=== PATIENT | female | born 1965 | race Two or more races ===

== ENCOUNTER 2024-07-18 11:40 | Day surgery (SDC) | payer MEDICAID, SELFPAY ==
[2024-07-17 13:51] VITALS: BMI 26.7
[2024-07-18] VITALS (18 sets, daily range): BP systolic 113–186; BP diastolic 56–93; PULSE 53–95; RESP 12–19; TEMP 36.1–36.2; O2SAT 97–100; BMI 27.4
[2024-07-18] MEDS: SODIUM CHLORIDE 0.9% 500 ML 1,000 ML 60 ML IV (14:57)
--- NOTE | 2024-07-18 16:05 | SUR.PHASEII ---
8681 Patient arrived to recovery resting comfortably in [facility], [place], drowsy and able to arouse with verbal prompting, breathing unlabored, vital signs stable, denies pain and nausea, report received from Armida CAMARA
--- NOTE | 2024-07-18 16:38 | SUR.PHASEII ---
1638 Report given to Traci CAMARA, patient awake and alert, sitting up in bed, drinking water, breathing unlabored, vital signs stable, denies pain and nausea, Traci RN to assume care over patient
--- NOTE | 2024-07-18 16:38 | SUR.PHASEII ---
1638: Pt. AAOX4, vitals stable, breathing unlabored, no complaint of pain or nausea, pt. drank water, pt. meets discharge criteria, report received from Eva Soe RN to resume care of pt.
--- NOTE | 2024-07-18 16:45 | SUR.PHASEII ---
1645: Pt. AAOx4, vitals stable, breathing unlabored, no complaint of pain or nausea, no dressing in place, no active bleed noted, pt. tolerated sips of water well, pt. ambulated to wheelchair with steady gait and no assist, no complications. Gave discharge instructions to the pt. and her ride, both verbalized understanding and had no further questions. Pt. left with all personal belongings.
== END 2024-07-18 16:45 | disposition home or self-care (01) ==
PROVIDERS: Referring Provider Specialist; Visit Provider Specialist
PROC: 0DJD8ZZ Inspection of Lower Intestinal Tract, Via Natural or Artificial Opening Endoscopic (ICD-10-PCS; CPT 45378; principal; 2024-07-18 13:30)
PROC: (CPT 43239; 2024-07-18 13:30)
DX: E16.4 Increased secretion of gastrin (principal); K31.7 Polyp of stomach and duodenum; K21.01 Gastro-esophageal reflux disease with esophagitis, with bleeding; K25.4 Chronic or unspecified gastric ulcer with hemorrhage; K44.9 Diaphragmatic hernia without obstruction or gangrene; K31.89 Other diseases of stomach and duodenum; D64.9 Anemia, unspecified; K64.2 Third degree hemorrhoids
CPT/HCPCS: 43239; 45378; J1200; J2250; J3010; J7040; A9270

== ENCOUNTER → 2024-09-07 | Outpatient (CLI) | payer MEDICAID, SELFPAY ==
--- NOTE | 2024-09-07 11:00 | XR_ITS ---
Examination: CT abdomen with intravenous contrast. Coronal 2-D reconstructions. Sagittal 2-D reconstructions. 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 One or more of the following dose reduction techniques were used; automated exposure control, adjustment of the mA and/or KV according to patient size, use of iterative reconstruction technique. Findings: 30 mm posterior right lobe liver lesion Anterior left lobe 37 mm liver lesion Absent gallbladder Small retrocardiac gastric hernia Common bile duct 6 mm, no stones Mucosal edema in the gastric antrum and duodenum, axial image 65 No abdominal lymphadenopathy No renal or ureteral calculi, no hydronephrosis No bowel obstruction Moderate disc narrowing L5-S1 IMPRESSION: Liver lesions as above which may represent hemangiomas, recommend hepatic sonography for confirmation of benign liver hemangiomas Mucosal edema in the gastric antrum and duodenum
== END | disposition home or self-care (01) ==
PROVIDERS: PCP Physician Assistant; Referring Provider Specialist; Visit Provider Specialist
DX: K76.9 Liver disease, unspecified (principal); K31.89 Other diseases of stomach and duodenum
CPT/HCPCS: 74160; A4649; Q9967

== ENCOUNTER 2024-10-30 12:23 | Inpatient (IN) | payer MEDICAID, SELFPAY ==
--- NOTE | 2024-10-26 06:06 | EKG_ITS ---
[facility] Test Date: 2024-10-26 Pat Name: PILO BORREGO Department: Room: - Gender: Female Sock Lining Examiner: SHAKILA : 1965 Requested By: Jaime Gleason Order Number: [id number] Reading MD: Jaime Gleason Measurements Intervals Hawkins Rate: 52 P: 34 MA: 145 QRS: 25 QRSD: 79 T: 26 QT: 438 QTc: 411 Interpretive Statements SINUS BRADYCARDIA No previous ECG available for comparison /store/S0/[id number]/ecg/[id number]
[2024-10-26 09:02] VITALS: BMI 28.8
[2024-10-26 09:28] LABS: Collection Type, Urine Clean Catch
[2024-10-26 10:43] LABS: Basophils # (Auto) 0.1 Thou/mm3 (0.0-0.2); Basophils % (Auto) 1 % (0-2.5); Eosinophils # (Auto) 0.1 Thou/mm3 (0.0-0.5); Eosinophils % (Auto) 2 % (0-10); Hematocrit 38.4 % (36.0-46.0); Hemoglobin 12.4 g/dL (12.0-16.0); Immature Granulocytes Auto 0.02 Thou/mm3 (0.00-0.00); Lymphocytes # (Auto) 2.2 Thou/mm3 (1.0-4.8); Lymphocytes % (Auto) 36 % (10-50); Mean Corpuscular HGB Conc 32.3 g/dl (31.0-37.0); Mean Corpuscular Hemoglobin 26.5 pg (25.0-35.0); Mean Corpuscular Volume 82 fL (80-100); Monocytes # (Auto) 0.5 Thou/mm3 (0.0-0.8); Monocytes % (Auto) 8 % (0-12); Neutrophils # (Auto) 3.2 Thou/mm3 (1.8-7.7); Neutrophils % (Auto) 53 % (37-80); Nucleated Red Blood Cell # 0.00 Thou/mm3 (0.00-0.00); Nucleated Red Blood Cell % 0 /100 WBC (0); Platelet Count 234 Thou/mm3 (140-440); RDW Standard Deviation 41.1 fL (36.4-46.3); Red Blood Count 4.68 Miln/mm3 (4.00-5.20); White Blood Count 6.1 Thou/mm3 (3.6-11.0)
[2024-10-26 10:49] LABS: Alanine Aminotransferase 16 U/L (10-49); Albumin, Serum 4.5 gm/dL (3.4-4.8); Albumin/Globulin Ratio 1.6 (1.2-2.2); Alkaline Phosphatase 63 U/L (46-116); Anion Gap 9 (7-16); Aspartate Amino Transferase 21 U/L (0-34); BUN/Creatinine Ratio 21 Ratio (12-20); Bilirubin,Total 0.9 mg/dL (0.3-1.2); Blood Urea Nitrogen 17 mg/dL (9-23); Calcium 9.9 mg/dL (8.3-10.6); Calcium (Corrected) 9.9 mg/dL (8.5-10.1); Carbon Dioxide 26.6 mMol/L (20.0-31.0); Chloride 107 mMol/L (98-107); Creatinine (Component) 0.8 mg/dL (0.6-1.3); Estimated Creatinine Clearance 66.5 mL/min (>60); Globulin 2.8 gm/dL (2.3-3.5); Glucose 86 mg/dL (74-106); Osmolality,Calculated 285 (275-295); Potassium 3.8 mMol/L (3.4-5.1); Sodium 143 mMol/L (136-145); Total Protein 7.3 gm/dL (5.7-8.2); eGFR > 60 See Note
[2024-10-26 10:51] LABS: Partial Thromboplastin Time 25.6 Seconds (22.0-36.0)
[2024-10-26 10:53] LABS: Bilirubin,Urine Negative (Negative); Blood,Urine Negative (Negative); Clarity,Urine Clear (Clear/Hazy); Color,Urine Yellow (Lt Yel-Yel); Glucose, Urine Negative (Negative); Ketones,Urine Negative (Negative); Leukocyte Esterase,Urine Positive (Negative); Nitrite,Urine Negative (Negative); PH,Urine 6.0 (5.0-7.0); Protein,Urine Negative (Neg - Trace); RBC,Urine 4 /hpf (0-3); Specific Gravity,Urine 1.028 (1.001-1.035); Squamous Epithelial Cell,Urine 6 /hpf (0-5); Urobilinogen,Urine Negative mg/dL (0.0-1.0); WBC,Urine 1 /hpf (0-5)
[2024-10-26 10:57] LABS: Sperm,Urine Present
[2024-10-30] VITALS (17 sets, daily range): BP systolic 101–141; BP diastolic 60–88; PULSE 56–66; RESP 12–19; TEMP 36.1–36.6; O2SAT 95–100; BMI 28.5
[2024-10-30] MEDS: RINGERS LACTATED 1000 ML 1,000 ML 60 ML IV ×2 (06:57→13:09)
--- NOTE | 2024-10-30 07:39 | SUR.PREOP ---
Patient expressed gratitude for prayer before their procedure.
--- NOTE | 2024-10-30 11:16 | SUR.OPER ---
Son (Sukumar) updated on case status/progress via phone by Tr CAMARA at approx. 1102.
--- NOTE | 2024-10-30 11:45 | PD.SUROPNT ---
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 There is a liver hemangioma on the left lobe of the liver to tumor with multiple blood vessels consistent with the report from the CAT scan. She is status post laparoscopic cholecystectomy and she has significant amount of adhesions of the duodenum to the liver bed. Procedure Description Patient was interviewed in the preoperative area and the procedure was discussed in detail with the patient. Risk benefits and alternatives were discussed with the patient and potential procedure after extra laparotomy was discussed. Patient had questions today were answered and informed consent was obtained. Patient was then taken to the operating room and general anesthesia was administered in satisfactory manner. A timeout procedure is carried out. Patient is given IV antibiotics. Abdomen is prepped and draped in usual manner. A midline incision is made in the upper abdomen going around the umbilicus. The peritoneal cavity is opened and then exploration is carried out. Hemangioma is noted in the left lobe of the liver. Patient also has other hemangiomas. This appears to be soft and not malignant tumor Omni-Tract self-retaining retractor is used for retraction of the abdominal wound. At first lysis of adhesions is needed to mobilize the duodenum from the gallbladder and liver bed. Gentle lysis of adhesions is needed. After that the duodenum was kocherized. Duodenum from the first part to the third part is mobilized. Duodenum was retracted towards the left side. Kidney is identified as a landmark. Intraoperative ultrasound is carried out in this location in order to identify the tumor within the duodenum however that could not be done easily. Therefore intraoperative endoscopy was employed. The endoscopy scope is advanced into the mouth into the stomach and duodenum. Pyloric stenosis is noted. The tumor is noted and is marked on the surface by the stores assistant. This is how the location of the tumor is identified. After that the scope is removed. The stomach is decompressed and then the part of the duodenum is immobilizes close to the pyloric opening. There is significant amount of scar tissue in the pylorus and a history of pyloric stenosis is noted. A longitudinal incision is made in the duodenum and into the through the pylorus. The tumor is identified and then it was ligated with 3-0 silk tie and was removed. The stump of the tumor was cauterized. After that the nasogastric tube was reinserted and passed into the duodenum beyond the duodenotomy. The duodenotomy and pylorotomy were repaired using pyloroplasty technique in a transverse manner. This was done with 3-0 silk interrupted sutures. After the closure of the duodenotomy and pyloroplasty is completed omentum was brought over the pyloroplasty area as a second buttressing layer. Laps and instrument counts have been obtained correct x 2 and then the self-retaining retractor Omni-Tract is removed. The linea alba is approximated by 0 PDS continuous suture interrupted in the middle subtenons tissue by 3-0 Vicryl interrupted sutures and skin by 4-0 Monocryl subcuticular stitches Steri-Strips are applied. Patient taught the procedure very well. Complications none. Anesthesia GETA Drains None. Implants None. 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
--- NOTE | 2024-10-30 12:02 | SUR.PHASEI ---
1202: Pt. wakes to name then drifts back to sleep, vitals stable, breathing unlabored, no complaint of pain or nausea, dressing to ABD CDI, no active bleed noted, NG tube to right nare place on LIS, report received from Tr CAMARA and Khurram PATHAK.
[2024-10-30] MEDS: HYDROmorphone INJ 2 MG/ML VIAL IVP ×2 (12:21→12:35)
[2024-10-30] MEDS: HYDROmorphone 1 MG/ML PCA SYRINGE 30ML PCA (12:52)
[2024-10-30] MEDS: ONDANSETRON INJ 2 MG/ML INJ 2 ML 4 MG IVP ×2 (13:13→20:15)
--- NOTE | 2024-10-30 14:10 | SUR.PHASEII ---
1410: Pt. AAOx4, vitals stable, breathing unlabored, no complaint of pain, pt. stated nausea was getting better, dressing to ABD CDI, no active bleed noted, ABD Binder in place, NG tube in right nare, gave report to Korina CAMARA prior to transfer to room 359. Family aware of transfer to room. Pt. transferred with all personal belongings.
[2024-10-30] MEDS: KETOROLAC INJ 30 MG/ML VIAL IVP (17:38)
[2024-10-30] MEDS: ACETAMINOPHEN IVPB 1,000 MG/100 ML VIAL 250 MG IV (17:39)
[2024-10-31] VITALS (11 sets, daily range): BP systolic 103–128; BP diastolic 55–67; PULSE 57–74; RESP 16–20; TEMP 36.1–36.4; O2SAT 93–100
[2024-10-31] MEDS: ACETAMINOPHEN IVPB 1,000 MG/100 ML VIAL 250 MG IV ×3 (00:18→14:08)
[2024-10-31] MEDS: KETOROLAC INJ 30 MG/ML VIAL IVP ×4 (00:18→17:59)
[2024-10-31] MEDS: GABAPENTIN 100 MG CAPSULE 200 MG PO (09:09)
[2024-10-31] MEDS: RINGERS LACTATED 1000 ML 1,000 ML 60 ML IV (09:09)
[2024-10-31] MEDS: ESOMEPRAZOLE 40 MG IVP (09:12)
--- NOTE | 2024-10-31 10:56 | PC.SS ---
Patient Taylor Barth is a 59 Year old female admitted for External LAP. SS met with patient at bedside to discuss discharge plan and verify demographic information. Patient reports her daughter, Eleonora Mireles is her surrogate decision maker, [phone] and main point of contact. Patient reports she does not utilize any source of DME to assist with ambulation. Patient is able to complete all ADL's to assist with ambulation. PCP is Olesya Duncan. At time of discharge patient will return back home. Next of kin: DaughterEleonora Discharge plan: Home
[2024-10-31] MEDS: HYDROmorphone 1 MG/ML PCA SYRINGE 30ML PCA (17:00)
--- NOTE | 2024-10-31 21:35 | ESPR_ITS ---
Documentation for date of: 10/31/24 Subjective Subjective Brief History: This patient has undergone extra laparotomy for a duodenal tumor and with the duodenotomy she also had pyloric stenosis so the duodenotomy was extended through the pylorus and pyloroplasty was also carried out. She had a tumor in the liver but turned out to be a hemangioma and therefore it was not resected. She has multiple hemangiomas in the liver. Postoperatively she has had a naso gastric tube that is not draining much and that she has complaints of esophageal reflux with PPI medication has been started and it is helping her somewhat. She also has complaint with nausea that requires IV Zofran. The Tamayo catheter was removed. The patient is encouraged to get out of the bed and if the nasogastric tube is clamped and residual is minimal then nasogastric tube can be removed. At this time we are to continue with the IV narcotics for pain control. Exam Vital Signs Temp Pulse Resp BP Pulse Ox O2 Del Method O2 Flow Rate 97.6 F 65 16 121/67 93 L Nasal Cannula 2 10/31/24 20:00 10/31/24 20:00 10/31/24 20:00 10/31/24 20:00 10/31/24 20:00 10/31/24 20:00 10/31/24 20:00 Narrative Exam Patient is in the bed appears to be in good condition. She has a nasogastric tube in place which is draining bilious material the abdomen is soft and nondistended nontender dressing is dry and intact. Patient is encouraged to get out of the bed. Cardiopulmonary examination appears to be normal extremities are unremarkable. There are no new issues. 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 In that case we can start her on clear liquid diet and see how much she is tolerating. Continue IV narcotics for pain management. Discharge planning in 1 to 2 days. PROCEDURES: Procedure Date 10/30/24 Procedures Explore laparotomy and removal of the duodenal tumor on 10/30/2024 Pyloroplasty Intraoperative ultrasound Intraoperative upper GI endoscopy
--- NOTE | 2024-10-31 21:45 | PC.NURSE ---
call received from Dr. Gleason for updates about patient. Notified provider that NG suctioning don't have much output and patient has no nausea or vomiting so far. per doctor clamp NG tube in four hours then check residuals, if it is less then 200mL, discontinue NG tube. Per doctor to have patient on a clear liquid diet now. Patient was c/o right shoulder and right upper back pain and discomfort, per doctor to see if it worsens or any new symptoms. Patient repositioned for comfort.
[2024-11-01] VITALS (12 sets, daily range): BP systolic 111–125; BP diastolic 56–67; PULSE 60–84; RESP 14–20; TEMP 36.1–37.2; O2SAT 19–98
[2024-11-01] MEDS: RINGERS LACTATED 1000 ML 1,000 ML 60 ML IV ×2 (04:00→19:47)
[2024-11-01] MEDS: KETOROLAC INJ 30 MG/ML VIAL IVP (06:27)
--- NOTE | 2024-11-01 08:16 | CHAP ---
Patient was visited by a Spiritual Care Volunteer on 10/31/2024 between 0900 and 1200 and received comfort, encouragement and/or prayer.
[2024-11-01] MEDS: GABAPENTIN 100 MG CAPSULE 200 MG PO ×2 (09:16→20:01)
[2024-11-01] MEDS: ESOMEPRAZOLE 40 MG IVP (09:22)
--- NOTE | 2024-11-01 10:07 | PC.SS ---
SS follow up note; Patient will discharge home when medically cleared by Dr. Gleason.
--- NOTE | 2024-11-01 10:31 | PC.NURSE ---
Dr Rosibel phillips on pt. assessed pt with MD dressing intact. per pt no complains.
--- NOTE | 2024-11-01 10:43 | ESPR_ITS ---
Documentation for date of: 11/01/24 Subjective Subjective Brief History: This patient has undergone extra laparotomy for a duodenal tumor and with the duodenotomy she also had pyloric stenosis so the duodenotomy was extended through the pylorus and pyloroplasty was also carried out. She had a tumor in the liver but turned out to be a hemangioma and therefore it was not resected. She has multiple hemangiomas in the liver. Postoperatively she has had a naso gastric tube that is not draining much and that she has complaints of esophageal reflux with PPI medication has been started and it is helping her somewhat. She also has complaint with nausea that requires IV Zofran. The [place] catheter was removed. The patient is encouraged to get out of the bed and if the nasogastric tube is clamped and residual is minimal then nasogastric tube can be removed. At this time we are to continue with the IV narcotics for pain control. Postop day 2 on 11/01/2024: The nasogastric tube was removed last night because the residual after clamping was minimal. She has been started on a clear liquid diet and she is doing very well with that. She has no new complaints. She is not getting out of the bed will get physical therapy to help her get out of the bed and ambulate. The only complaint she has is that the abdominal binder is rubbing against her chest wall. That was adjusted. There are no other new complaints. Patient says that she is a week she is not able to go home and she has pain that requires pain medication. I have discussed with the patient that we can switch over the IV pain medication to oral pain medication we will make an assessment for her ambulation and she walks around the hallway for several times today then she may be discharged home tomorrow. Exam Vital Signs Temp Pulse Resp BP Pulse Ox O2 Del Method O2 Flow Rate 97.1 F 76 18 114/63 92 L Room Air 2 11/01/24 08:00 11/01/24 08:00 11/01/24 08:00 11/01/24 08:00 11/01/24 08:00 11/01/24 08:00 11/01/24 04:00 Narrative Exam Patient appears to be in reasonably good condition has her main complaint is that the abdominal binder is rubbing against her chest wall. That was adjusted. The cardiopulmonary examination is normal extremities are unremarkable abdomen is soft nontender and nondistended. The abdominal wound dressing is dry and intact without any drainage. Back examination normal. 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 Switch the IV narcotics to oral pain medication. Make an assessment of the pain control on oral pain medications. PROCEDURES: Procedure Date 10/30/24 Procedures Explore laparotomy and removal of the duodenal tumor on 10/30/2024 Pyloroplasty Intraoperative ultrasound Intraoperative upper GI endoscopy
[2024-11-02] VITALS: BP 110/63; PULSE 79; RESP 16; TEMP 36.3; O2SAT 96
[2024-11-02 04:00] VITALS: BP 114/54; PULSE 73; RESP 18; TEMP 36.6; O2SAT 97
[2024-11-02 05:38] VITALS: RESP 16
[2024-11-02 08:00] VITALS: BP 116/62; PULSE 79; RESP 17; TEMP 36.4; O2SAT 97
[2024-11-02 09:45] VITALS: RESP 17
--- NOTE | 2024-11-02 09:46 | PD.SURPROG ---
Documentation for date of: 11/02/24 Subjective Subjective Brief History: This patient has undergone extra laparotomy for a duodenal tumor and with the duodenotomy she also had pyloric stenosis so the duodenotomy was extended through the pylorus and pyloroplasty was also carried out. She had a tumor in the liver but turned out to be a hemangioma and therefore it was not resected. She has multiple hemangiomas in the liver. Postoperatively she has had a nasogastric tube that is not draining much and that she has complaints of esophageal reflux with PPI medication has been started and it is helping her somewhat. She also has complaint with nausea that requires IV Zofran. The Tamayo catheter was removed. The patient is encouraged to get out of the bed and if the nasogastric tube is clamped and residual is minimal then nasogastric tube can be removed. At this time we are to continue with the IV narcotics for pain control. Postop day 2 on 11/01/2024: The nasogastric tube was removed last night because the residual after clamping was minimal. She has been started on a clear liquid diet and she is doing very well with that. She has no new complaints. She is not getting out of the bed will get physical therapy to help her get out of the bed and ambulate. The only complaint she has is that the abdominal binder is rubbing against her chest wall. That was adjusted. There are no other new complaints. Patient says that she is a week she is not able to go home and she has pain that requires pain medication. I have discussed with the patient that we can switch over the IV pain medication to oral pain medication we will make an assessment for her ambulation and she walks around the hallway for several times today then she may be discharged home tomorrow. Postop day 3 on 11/02/2024. The patient is doing well she is tolerating full liquid diet well getting out of the bed abdomen is nondistended bowel tones are normal. Patient has been passing flatus. She has become ambulatory and wants to go home. There are no new issues. Exam Vital Signs Temp Pulse Resp BP Pulse Ox O2 Del Method O2 Flow Rate 97.6 F 79 17 116/62 97 Room Air 2 11/02/24 08:00 11/02/24 08:00 11/02/24 08:00 11/02/24 08:00 11/02/24 08:00 11/02/24 08:00 11/01/24 04:00 Narrative Exam The abdomen is soft and nontender. Bowel tones are present extremities are unremarkable cardiopulmonary examination is normal. Assessment & Plan Diagnosis (1) Status post laparotomy: Status: Acute (2) Liver hemangioma: Status: Acute Plan Will keep the patient on full liquid diet for about 10 days follow-up in the office discharge today if she needs to have [place] for postop pain management at home. PROCEDURES: Procedure Date 10/30/24 Procedures Explore laparotomy and removal of the duodenal tumor on 10/30/2024 Pyloroplasty Intraoperative ultrasound Intraoperative upper GI endoscopy
[2024-11-02] MEDS: ESOMEPRAZOLE 40 MG IVP (09:47)
[2024-11-02] MEDS: GABAPENTIN 100 MG CAPSULE 200 MG PO (09:48)
[2024-11-02 12:00] VITALS: BP 135/70; PULSE 80; RESP 17; TEMP 36.3; O2SAT 94
== END 2024-11-02 11:59 | disposition home or self-care (01) | DRG 220 ==
LOC: S3NX 14:26
PROVIDERS: Admitting Provider Specialist; PCP Physician Assistant; Referring Provider Specialist; Visit Provider Specialist
PROC: 0DB90ZZ Excision of Duodenum, Open Approach (ICD-10-PCS; CPT 49000; principal; 2024-10-30 07:30)
PROC: 0DB90ZZ Excision of Duodenum, Open Approach (ICD-10-PCS; CPT 43239; 2024-10-30 07:30)
DX: D49.0 Neoplasm of unspecified behavior of digestive system (principal); K31.1 Adult hypertrophic pyloric stenosis; D18.03 Hemangioma of intra-abdominal structures; Z90.49 Acquired absence of other specified parts of digestive tract
CPT/HCPCS: 36415; 80053; 81001; 85025; 85730; 86850; 86900; 86901; 93005; 94664; 97162; A4217; A4649; J0131; J0694; J1100; J1171; J1885; J2405; J2704; J3490; J7120; A9270

== ENCOUNTER → 2025-02-12 | Outpatient (CLI) | payer MEDICAID, SELFPAY ==
--- NOTE | 2025-02-12 13:00 | XR_ITS ---
Examination: MRI of brain without intravenous contrast. MRI brain with intravenous contrast. Date and time of exam: February 12, 2025, 1357 hours INDICATIONS: Increasing memory loss 1 year Technique: Multiple axial and sagittal images of the brain to been obtained. Siemens high-resolution 1.52 Amara short bore scanner utilized. Sagittal sections, T1 weighted images, TR 500, TE 14, are performed. Axial sections proton-density and T2-weighted images have been obtained. Inversion recovery axial images, TR 9260, TE 111, TR 2500. Diffusion weighted images, axial sections, TR 4800, TE 128, B value 1000. Axial sections, ADC map, TR 4800, TE 128. Axial and coronal images were also obtained post 13 cc gadolinium administered intravenously. Findings:: Enlargement of the sella turcica is not present. The optic chiasm and infundibular stalk are not remarkable. There is no localized enlargement of the medulla or yessenia. Fourth ventricle and cerebellar tonsils appear normal in position. No subacute area of hemorrhage density is seen. Fourth ventricle is midline. Mass in the cerebellopontine angle region is not evident. 7th and 8th nerve complexes exhibit symmetry Globes are symmetrical Orbital musculature including medial lateral rectus muscles do not exhibit abnormality Increased white matter signal is not seen Effacement of the cortical sulcal markings is not identified. Mass effect upon the ventricular system is not identified. Diffusion-weighted images demonstrate no focus of restricted diffusion Contrast images demonstrate no abnormal enhancement Impression: Negative for acute hemorrhage mass effect or midline shift No acute infarct No chronic microvascular white matter change
== END | disposition home or self-care (01) ==
PROVIDERS: PCP Physician Assistant; Referring Provider Physician Assistant; Visit Provider Physician Assistant
DX: R41.0 Disorientation, unspecified (principal); R41.3 Other amnesia
CPT/HCPCS: 70553; A9577